=== PATIENT | male | born 1980 | race Caucasian/White ===

== ENCOUNTER 2024-09-27 08:19 | Emergency (ER) | payer SELFPAY ==
[2024-09-27] MEDS: Tetracaine HCl/PF 0.5% 4 ML Bottle EYELF ONE (09:06)
[2024-09-27] MEDS: Fluorescein 1 MG Ophth Strip EYELF ONE (09:06)
== END 2024-09-27 13:08 | disposition home or self-care (01) ==
LOC: MW.ED 08:19
DX: H57.12 Ocular pain, left eye (principal); Z88.0 Allergy status to penicillin; Z75.8 Other problems related to medical facilities and other health care
CPT/HCPCS: 70480; 70480-26; 99283; J3490